=== PATIENT | female | born 1990 | race African-American/Black ===

== ENCOUNTER 2017-01-11 07:00 | Inpatient (IN) ==
[2017-01-11] MEDS: LACTATED RINGERS 1,000 ML IV SCH ×2 (07:30→09:10)
[2017-01-11] MEDS ORDERED: ceFAZolin 2,000 MG in SODIUM CHLORIDE 0.9% 100 ML IV ONE (07:34)
[2017-01-11] MEDS ORDERED: CITRIC ACID/SODIUM CITRATE 30 ML UDCUP PO ONE (07:34)
[2017-01-11] MEDS ORDERED: FAMOTIDINE 20 MG/2 ML VIAL IV ONE (07:34)
[2017-01-11] MEDS ORDERED: OXYTOCIN 10 UNIT/ML VIAL IM ONE (08:05)
[2017-01-11] MEDS ORDERED: OXYTOCIN/LR 30 UNIT/1,000 ML BAG IV ONE (08:05)
[2017-01-11 08:15] LABS: Basophils % 0.1 % (0.0-0.8); Eosinophils # 0.1 10*3/uL (0.0-0.87); Eosinophils % 0.8 % (0.00-10.9); Hematocrit 32.4 VOL% (35.7-47.0); Hemoglobin 11.2 GM/DL (12.0-16.0); Immature Granulocytes % 1.8 %; Immature Granulocytes Absolute 0.14 #; Lymphocytes # 2.4 10*3/uL (1.4-4.0); Lymphocytes % 29.7 % (21.3-54.2); Mean Corpuscular HGB Conc 34.6 GM/DL (32-36); Mean Corpuscular Hemoglobin 32 PG (27-34); Mean Corpuscular Volume 92.8 FL (87-102); Mean Platelet Volume 11.4 FL (9.6-12.0); Monocytes # 0.8 10*3/uL (0.11-0.8); Monocytes % 9.6 % (1.7-12.7); Neutrophils # 4.6 10*3/uL (1.4-7.4); Platelet Count 143 T/CUMM (130-400); Red Blood Count 3.49 MC/CUMM (3.8-5.5); Red Cell Distribution Width 13.4 % (9.3-17.3); White Blood Count 7.9 T/CUMM (4-12)
[2017-01-11 08:53] LABS: Bilirubin,Total 0.4 MG/DL (0.2-1.0); Calcium 8.6 MG/DL (8.5-10.1); Osmolality,Calculated 275.3 MOS/KG (273-304); Potassium 3.4 MMOL/L (3.5-5.1); Total Protein 6.3 G/DL (6.4-8.3)
[2017-01-11] MEDS ORDERED: ONDANSETRON 4 MG/2 ML VIAL ONE (09:30)
[2017-01-11] MEDS ORDERED: PHENYLEPHRINE 1 MG/10 ML SYRINGE IV ONE (09:30)
[2017-01-11 10:24] LABS: Cord Venous Blood HCO3 21.3 MMOL/L; Cord Venous Blood PO2 28.1 MMHG
--- NOTE | 2017-01-11 10:27 | OB/GYN History & Physical ---
History of Present Illness Chief complaint: 39 weeks gestation, repeat section 2 History of present illness: Ms. Schroeder is a 26 year old female 26-year-old female 3 to EDC is 7 7 who presents for repeat section. This patient is a previous section 2 who presents for a repeat section. Risks benefits are discussed she is in full agreement. Fetus is active, heart tones category 1 Home Medications Medication Instructions Recorded Confirmed Type Pnv No.95/Ferrous Fum/Folic AC 1 each PO DAILY 08/27/16 01/11/17 History [ Tablet] NIFEdipine CAP [Procardia] 10 mg PO Q6HR 12/25/16 01/11/17 History Allergies Allergy/AdvReac Type Severity Reaction Status Date / Time No Known Allergies Allergy Verified 01/01/17 16:13 Medical,Surgical,& Family Hx - Medical History Cardio: History of: Hypertension (DURING ) Neurology: History of: Migraine No history of: Seizures Reproductive: History of: Sexually Transmitted Disorders (TRICH,BV) - Surgical History Reproductive Surgeries: Surgical HX of;: Section - Family History Family History: Reports;: Family Cancer (MOTHER), Family Hypertension (MOTHER) - Social History Smoking Status: Never smoker Frequency of Alcohol Use: None Type of Drug Use: None 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 - Constitutional Vitals: Vital Signs Temp Pulse Resp BP Pulse Ox 01/11/17 08:00 97.3 F L 97 H 18 134/84 98 General appearance: normal weight - Head Head exam: Present: normal inspection - Eye Eye exam: Present: EOMI Pupils: Present: GREGORIO - ENT ENT exam: Present: normal exam - Neck Neck exam: Present: normal inspection - Respiratory Respiratory exam: Present: clear to auscultation bilaterally - Breast Breasts: as per HPI Menstruation: as per HPI - Cardiovascular Cardiovascular exam: Present: regular rate and rhythm - GI/Abdominal GI/Abdominal exam: Present: normal bowel sounds - Extremities Exam Extremities exam: Present: normal inspection - Back Exam Back exam: Present: normal inspection - Neurological Exam Neurological exam: Present: alert, oriented X3 - Psychiatric Psychiatric exam: Present: normal affect - Skin Skin exam: Present: normal color Assessment and Plan (1) Status post repeat low transverse section Status: Acute Assessment and plan: Term 39 weeks, plan on repeat section. Current Visit: Yes Results - Labs CBC & BMP: 01/11/17 07:56 01/11/17 07:56
[2017-01-11] MEDS ORDERED: fentaNYL 100 MCG/2 ML VIAL ONE (10:31)
[2017-01-11] MEDS ORDERED: MIDAZOLAM 2 MG/2 ML VIAL ONE (10:31)
[2017-01-11] MEDS ORDERED: MORPHINE 10 MG/10 ML VIAL ONE (10:32)
--- NOTE | 2017-01-11 10:32 | Operative Note ---
Date of procedure: 01/11/17 Procedure: Preoperative diagnosis: Repeat section 2 Postoperative diagnosis: Same Anesthesia:[] Regional Estimated blood loss: [] 300 Surgeon: Dr. Powers Findings: [] Live male, born at 10:00, 7 lbs. 10 oz., Apgars 8 at 1, 9 at 5 Complications: None Procedure: Low transverse section The patient was taken to the operating suite heart tones were obtained prior to and after regional anesthesia was obtained. She was placed in supine position her abdomen was prepped and draped in usual manner for major abdominal surgery. Through an abdominal incision the skin, subcutaneous, fascial layer and peritoneal the abdomen was entered. The bladder flap was created and a low transverse incision was made.. Fluid was clear and normal amount X, Apgars, the placenta was delivered and sent to lab for further evaluation. Injected with intrauterine Pitocin. The first layer of the uterus was closed with #1 Vicryl in a continuous locking manner. Close to imbricate the first layer with #1 Vicryl. The peritoneum was approximated with #2-0 Vicryl.[] All the last sponges and instruments were accounted for -2.) #2-0 Vicryl. Fascia was approximated with #0-0 Maxon.. The skin was approximated with loco. She tolerated procedure well and was taken to recovery room in stable condition. Surgeon / Physician: Collette Powers Results - Labs CBC & BMP: 01/11/17 07:56 01/11/17 07:56 Discharge Plan - Discharge Medications No Action Pnv No.95/Ferrous Fum/Folic AC [ Tablet] 1 each PO DAILY NIFEdipine CAP [Procardia] 10 mg PO Q6HR - Follow Up or Referral - Forms/Instructions
[2017-01-11] MEDS ORDERED: ACETAMINOPHEN 325 MG TABLET PO PRN (10:33)
[2017-01-11] MEDS ORDERED: RHO(D) IMMUNE GLOBULIN 300 MCG SYRINGE IM ONE (10:33)
[2017-01-11] MEDS ORDERED: ONDANSETRON 4 MG/2 ML VIAL IV PRN (10:33)
[2017-01-11] MEDS ORDERED: SIMETHICONE CHEW 80 MG TABLET PO PRN (10:33)
[2017-01-11] MEDS ORDERED: OXYTOCIN/LR 20 UNIT/1,000 ML BAG IV ONE (10:33)
[2017-01-11] MEDS ORDERED: HYDROmorphone 2 MG/1 ML VIAL IV ONE (12:41)
[2017-01-11] MEDS: HYDROmorphone 2 MG/1 ML VIAL IV PRN ×2 (17:14→19:54)
[2017-01-11 19:03] LABS: Basophils % 0.1 % (0.0-0.8); Eosinophils % 0.3 % (0.00-10.9); Hematocrit 28.2 VOL% (35.7-47.0); Hemoglobin 9.7 GM/DL (12.0-16.0); Immature Granulocytes % 1.3 %; Immature Granulocytes Absolute 0.15 #; Lymphocytes # 2.2 10*3/uL (1.4-4.0); Lymphocytes % 19.2 % (21.3-54.2); Mean Corpuscular HGB Conc 34.4 GM/DL (32-36); Mean Corpuscular Hemoglobin 32 PG (27-34); Mean Corpuscular Volume 94.3 FL (87-102); Mean Platelet Volume 11.1 FL (9.6-12.0); Monocytes # 0.8 10*3/uL (0.11-0.8); Monocytes % 7.1 % (1.7-12.7); Neutrophils # 8.4 10*3/uL (1.4-7.4); Platelet Count 130 T/CUMM (130-400); Red Blood Count 2.99 MC/CUMM (3.8-5.5); Red Cell Distribution Width 13.4 % (9.3-17.3); White Blood Count 11.6 T/CUMM (4-12)
--- NOTE | 2017-01-11 19:42 | Anesthesia Post-Op ---
Anesthesia Post OP - Post Ansesthetic Evaluation Patient seen in post op: Yes Resp: within normal limits CV: within normal limits Mental: within normal limits Temp: within normal limits [id number]: within normal limits Nausea and Vomiting: within normal limits Pain: within normal limits
[2017-01-11] MEDS ORDERED: diphenhydrAMINE 50 MG/1 ML VIAL IV PRN (19:46)
[2017-01-11] MEDS: IBUPROFEN 800 MG TABLET PO PRN (19:57)
[2017-01-11 20:00] LABS: Barbiturates Screen,Urine Negative (Negative); Benzodiazepines Screen,Urine Positive (Negative); Cannabinoid Screen,Urine Negative (Negative); Opiate Screen,Urine Positive (Negative); Phencyclidine Screen,Urine Negative (Negative)
[2017-01-12] MEDS: DOCUSATE SODIUM 100 MG CAPSULE PO SCH ×3 (02:19→20:29)
[2017-01-12] MEDS: LACTATED RINGERS 1,000 ML IV SCH ×3 (02:31→19:50)
[2017-01-12] MEDS: IBUPROFEN 800 MG TABLET PO PRN ×3 (03:31→20:29)
[2017-01-12 06:36] LABS: Basophils % 0.2 % (0.0-0.8); Eosinophils % 0.4 % (0.00-10.9); Hematocrit 26.6 VOL% (35.7-47.0); Hemoglobin 9.1 GM/DL (12.0-16.0); Immature Granulocytes % 1.1 %; Immature Granulocytes Absolute 0.11 #; Lymphocytes # 1.5 10*3/uL (1.4-4.0); Lymphocytes % 14.8 % (21.3-54.2); Mean Corpuscular HGB Conc 34.2 GM/DL (32-36); Mean Corpuscular Hemoglobin 33 PG (27-34); Mean Corpuscular Volume 95.7 FL (87-102); Mean Platelet Volume 11.4 FL (9.6-12.0); Monocytes # 1.2 10*3/uL (0.11-0.8); Neutrophils # 7.4 10*3/uL (1.4-7.4); Neutrophils % 71.5 % (38.7-73.9); Platelet Count 134 T/CUMM (130-400); Red Blood Count 2.78 MC/CUMM (3.8-5.5); Red Cell Distribution Width 13.4 % (9.3-17.3); White Blood Count 10.3 T/CUMM (4-12)
[2017-01-12] MEDS: METOCLOPRAMIDE 10 MG/2 ML VIAL IV SCH ×2 (07:28→19:45)
[2017-01-12] MEDS: MULTIVITAMIN (PRENATAL) TABLET PO SCH (09:20)
[2017-01-12] MEDS: MAGNESIUM HYDROXIDE SUSP 30 ML UDCUP PO PRN ×2 (09:20→17:47)
--- NOTE | 2017-01-12 09:58 | OB/GYN Progress Note ---
Assessment and Plan (1) Status post repeat low transverse section Status: Acute Assessment and plan: POD#1 s/p section Doing ok Encourage ambulation Current Visit: Yes GENERAL MAGISTRATE - PN: Subj Interval history: Pt feels sore this morning Exam GENERAL MAGISTRATE - Constitutional Vitals: Vital Signs Temp Pulse Resp BP Pulse Ox 01/12/17 08:00 97.9 F 96 H 20 126/77 01/12/17 03:32 97.7 F 91 H 18 121/67 99 01/12/17 00:00 98 F 88 18 113/55 99 01/11/17 20:00 98 F 90 18 115/70 99 01/11/17 15:59 98.4 F 83 20 124/71 98 01/11/17 15:05 98.0 F 83 20 129/75 98 General appearance: no acute distress - Head Head exam: Present: normal inspection - Eye Eye exam: Present: EOMI Pupils: Present: GREGORIO - GI/Abdominal GI/Abdominal exam: Present: other (Incision intact) Results - Labs CBC & BMP: 01/12/17 06:10 01/11/17 07:56
--- NOTE | 2017-01-12 13:34 | Discharge Summary ---
Hospital Course - Hospital Course Hospital Course: Postoperative day #2 Status post section Patient is doing well ambulating, voiding well, passing gas, however patient has not had a bowel movement at this time. Denies any other major problems. No shortness of breath chest pain or palpitations. Her incision site is well intact Extremities well within normal limits neurologic grossly intact assessment plan we will discharge and follow my office in 2 weeks Diagnosis - Discharge Diagnosis (1) Status post repeat low transverse section Status: Acute Discharge Plan - Discharge Data Condition at Discharge: Stable Discharge Diet: advance to your usual diet Activity: resume usual activities as tolerated, increase activity as tolerated Hygiene: may shower Weight Bearing at Discharge: weight bear as tolerated Driving: not until seen by doctor Contact your physician if you experience:: fever over 101, Shortness of breath, Bleeding - Discharge Medications New Ibuprofen Tab [Motrin Tab] 800 mg PO Q8H PRN #60 tablet PRN Reason: Pain Severe (8-10) HYDROcodone/ACETAMIN 5-325 [[place] 5-325] 2 tablet PO Q6H PRN #45 tablet PRN Reason: Pain Severe (8-10) No Action Pnv No.95/Ferrous Fum/Folic AC [ Tablet] 1 each PO DAILY NIFEdipine CAP [Procardia] 10 mg PO Q6HR - Follow Up or Referral - Forms/Instructions Exam - Constitutional Vitals: Period Temp Pulse Resp BP Sys/Vega Pulse Ox Last 24 Hr 97.7 F-98.4 F 83-96 18-20 113-129/55-77 97-99 Discharge Results Labs on day of discharge: Labs from last 24 hours 01/12/17 01/11/17 01/11/17 06:10 18:47 10:35 WBC 10.3 11.6 D RBC 2.78 L 2.99 L Hgb 9.1 L 9.7 L Hct 26.6 L 28.2 L MCV 95.7 94.3 MCH 33 32 MCHC 34.2 34.4 RDW 13.4 13.4 Plt Count 134 130 MPV 11.4 11.1 Neut % (Auto) 71.5 72.0 Lymph % (Auto) 14.8 L 19.2 L [place] % (Auto) 12.0 7.1 Eos % (Auto) 0.4 0.3 Baso % (Auto) 0.2 0.1 Neut # (Auto) 7.4 8.4 H Lymph # (Auto) 1.5 2.2 [place] # (Auto) 1.2 H 0.8 Eos # (Auto) 0.0 0.0 Baso # (Auto) 0.0 0.0 Immature Gran % 1.1 1.3 Nucleated RBC % 0.0 0.0 Immature Gran # 0.11 0.15 Nucleated RBCs # 0.00 0.00 Urine Opiates Screen Positive H Ur Barbiturates Screen Negative Ur Phencyclidine Scrn Negative U Amphetamine/Methamph Negative U Benzodiazepines Scrn Positive H U Cocaine Metab Screen Negative U Cannabinoids Screen Negative DS: Provider Date of admission: 01/11/17 07:00 Primary care physician: Collette Powers MD Attending physician on admission: Collette Powers MD Consults: 01/11/17 10:33 Consult to Substitute Teacher [CONS] Routine Consult Substitute Teacher: Breast Feeding 01/12/17 07:55 Consult to Case Mgmt/Social Srvs [CONS] Routine Reason for Case Mgmt/Social Srvs: Other Discharging clinician: Collette Powers MD
[2017-01-12] MEDS ORDERED: MAGNESIUM CITRATE 300 ML BOTTLE PO ONE (14:30)
[2017-01-12] MEDS ORDERED: METOCLOPRAMIDE 10 MG TABLET PO SCH (14:30)
[2017-01-12] MEDS ORDERED: BISACODYL 10 MG SUPP RECTAL ONE (17:44)
[2017-01-12] MEDS ORDERED: BISACODYL 10 MG SUPP RECTAL PRN (17:44)
[2017-01-13] MEDS: LACTATED RINGERS 1,000 ML IV SCH (03:23)
[2017-01-13] MEDS: IBUPROFEN 800 MG TABLET PO PRN (04:10)
[2017-01-13 07:32] VITALS: BP 127/75
[2017-01-13] MEDS ORDERED: IBUPROFEN 800 MG TABLET PO PRN (07:59)
[2017-01-13] MEDS: MULTIVITAMIN (PRENATAL) TABLET PO SCH (08:25)
[2017-01-13] MEDS: DOCUSATE SODIUM 100 MG CAPSULE PO SCH (08:25)
== END 2017-01-13 11:55 | disposition home or self-care (01) | DRG 540 ==
LOC: N.LD 07:00 → N.OB 15:31
PROVIDERS: ADMIT Obstetrics & Gynecology; ATTEND Obstetrics & Gynecology
PROC: LDCSECT (ICD-10-PCS; 2017-01-11 09:30)

== ENCOUNTER 2019-08-24 06:40 | Inpatient (IN) ==
[2019-08-24] MEDS ORDERED: ONDANSETRON 4 MG/2 ML VIAL IV PRN ×2 (07:58→10:11)
[2019-08-24] MEDS ORDERED: MEPERIDINE 50 MG/1 ML VIAL IV PRN (07:58)
[2019-08-24] MEDS ORDERED: BUTORPHANOL 2 MG/ML VIAL IV PRN (07:58)
[2019-08-24] MEDS ORDERED: FAMOTIDINE 20 MG/2 ML VIAL IV SCH (08:00)
[2019-08-24] MEDS ORDERED: LACTATED RINGERS 1,000 ML IV SCH ×2 (08:00→10:30)
[2019-08-24] MEDS ORDERED: CITRIC ACID/SODIUM CITRATE 30 ML UDCUP PO ONE (08:02)
[2019-08-24] MEDS ORDERED: ceFAZolin 2,000 MG in PREMIX 1 EACH IV ONE (08:07)
[2019-08-24 08:15] LABS: Basophils % 0.2 % (0.0-0.8); Eosinophils # 0.1 10*3/uL (0.0-0.87); Eosinophils % 1.1 % (0.00-10.9); Hematocrit 32.8 VOL% (35.7-47.0); Immature Granulocytes % 0.9 %; Immature Granulocytes Absolute 0.06 #; Lymphocytes # 2.3 10*3/uL (1.4-4.0); Lymphocytes % 36.9 % (21.3-54.2); Mean Corpuscular HGB Conc 33.5 GM/DL (32-36); Mean Corpuscular Volume 92.7 FL (87-102); Monocytes % 9.6 % (1.7-12.7); Neutrophils % 51.3 % (38.7-73.9); Platelet Count 165 T/CUMM (130-400); Red Blood Count 3.54 MC/CUMM (3.8-5.5); Red Cell Distribution Width 12.7 % (9.3-17.3); White Blood Count 6.3 T/CUMM (4-12)
[2019-08-24] MEDS ORDERED: ROPIVACAINE 0.5% 30 ML VIAL ONE (08:34)
[2019-08-24] MEDS ORDERED: PHENYLEPHRINE 1 MG/10 ML SYRINGE IV ONE (08:34)
[2019-08-24] MEDS ORDERED: KETOROLAC 60 MG/2 ML VIAL IM ONE (08:35)
[2019-08-24] MEDS ORDERED: BUPIVACAINE SPINAL 0.75% 2 ML AMP SPINAL ONE (08:35)
[2019-08-24] MEDS ORDERED: MORPHINE 10 MG/10 ML VIAL ONE (08:35)
[2019-08-24] MEDS ORDERED: fentaNYL 100 MCG/2 ML VIAL ONE (08:35)
[2019-08-24] MEDS ORDERED: DEXAMETHASONE 4 MG/1 ML VIAL ONE (08:35)
[2019-08-24] MEDS ORDERED: OXYTOCIN/LR 30 UNIT/1,000 ML BAG IV ONE (08:37)
[2019-08-24] MEDS ORDERED: OXYTOCIN 10 UNIT/ML VIAL IM ONE (08:37)
[2019-08-24 10:03] LABS: Cord Venous Blood HCO3 21.8 MMOL/L; Cord Venous Blood PCO2 42.4 MMHG; Cord Venous Blood PO2 31.8
[2019-08-24 10:11] LABS: Apearance,Urine CLEAR (Clear); Bilirubin,Urine Negative (Negative); Blood, Urine Small mg/dL (Negative); Glucose,Urine (UA) Negative (Negative); Ketones,Urine Negative (Negative); Nitrite,Urine Negative (Negative); Protein,Urine Negative; RBC,Urine 1 /HPF (0-4); Squamous Epithelial Cell,Urine Occasional /HPF (0-10); Urine Color Straw (Yellow); Urine Specific Gravity 1.012 (1.001-1.035); Urine Urobilinogen < 2.0 EU/DL (0.2-1.0); WBC,Urine <1 /HPF (0-6)
[2019-08-24] MEDS ORDERED: ACETAMINOPHEN 325 MG TABLET PO PRN (10:11)
[2019-08-24] MEDS ORDERED: RHO(D) IMMUNE GLOBULIN 300 MCG SYRINGE IM ONE (10:11)
[2019-08-24] MEDS ORDERED: OXYTOCIN/LR 20 UNIT/1,000 ML BAG IV ONE (10:11)
[2019-08-24] MEDS ORDERED: HYDROmorphone 2 MG/1 ML VIAL IV PRN ×2 (12:32→13:51)
[2019-08-24] MEDS ORDERED: hydrOXYzine HCL 25 MG/1 ML VIAL IM PRN (13:51)
[2019-08-24] MEDS ORDERED: diphenhydrAMINE 50 MG/1 ML VIAL IV PRN (13:51)
[2019-08-24] MEDS: KETOROLAC 30 MG/1 ML VIAL IV SCH ×2 (15:44→22:05)
[2019-08-24] MEDS: ceFAZolin 1,000 MG in SYRINGE 1 EACH IV SCH (17:30)
[2019-08-24 18:13] LABS: Hematocrit 30.2 VOL% (35.7-47.0); Hemoglobin 10.2 GM/DL (12.0-16.0)
[2019-08-24] MEDS: DOCUSATE SODIUM 100 MG CAPSULE PO SCH (22:05)
[2019-08-25] MEDS: ceFAZolin 1,000 MG in SYRINGE 1 EACH IV SCH (01:39)
[2019-08-25] MEDS: KETOROLAC 30 MG/1 ML VIAL IV SCH (04:07)
[2019-08-25 05:24] LABS: Basophils % 0.2 % (0.0-0.8); Eosinophils % 0.3 % (0.00-10.9); Hematocrit 24.3 VOL% (35.7-47.0); Hemoglobin 8.2 GM/DL (12.0-16.0); Immature Granulocytes % 0.7 %; Immature Granulocytes Absolute 0.08 #; Lymphocytes # 2.7 10*3/uL (1.4-4.0); Lymphocytes % 22.2 % (21.3-54.2); Mean Corpuscular HGB Conc 33.7 GM/DL (32-36); Mean Corpuscular Volume 93.8 FL (87-102); Mean Platelet Volume 11.1 FL (9.6-12.0); Neutrophils % 66.6 % (38.7-73.9); Platelet Count 129 T/CUMM (130-400); Red Blood Count 2.59 MC/CUMM (3.8-5.5); Red Cell Distribution Width 12.9 % (9.3-17.3); White Blood Count 12.1 T/CUMM (4-12)
[2019-08-25] MEDS: MAGNESIUM HYDROXIDE SUSP 30 ML UDCUP PO PRN (08:30)
[2019-08-25] MEDS: FERROUS SULFATE 325 MG TABLET PO SCH ×2 (08:30→20:01)
[2019-08-25] MEDS: METOCLOPRAMIDE 10 MG TABLET PO SCH ×2 (08:30→17:02)
[2019-08-25] MEDS: MULTIVITAMIN (PRENATAL) TABLET PO SCH (08:30)
[2019-08-25] MEDS: DOCUSATE SODIUM 100 MG CAPSULE PO SCH ×2 (08:30→20:01)
[2019-08-25] MEDS: SIMETHICONE CHEW 80 MG TABLET PO PRN (08:30)
[2019-08-25] MEDS: IBUPROFEN 800 MG TABLET PO PRN ×2 (08:38→19:56)
[2019-08-25] MEDS ORDERED: INFLUENZA VIRUS VACCINE 0.5 ML SYRINGE IM ONE (09:00)
[2019-08-26] MEDS: METOCLOPRAMIDE 10 MG TABLET PO SCH ×2 (02:22→09:00)
[2019-08-26] MEDS ORDERED: BISACODYL 10 MG SUPP RECTAL PRN (07:58)
[2019-08-26 08:43] VITALS: BP 113/65
[2019-08-26] MEDS: DOCUSATE SODIUM 100 MG CAPSULE PO SCH (09:00)
[2019-08-26] MEDS: MAGNESIUM HYDROXIDE SUSP 30 ML UDCUP PO PRN (09:00)
[2019-08-26] MEDS: SIMETHICONE CHEW 80 MG TABLET PO PRN (09:00)
[2019-08-26] MEDS: FERROUS SULFATE 325 MG TABLET PO SCH (09:00)
[2019-08-26] MEDS: MULTIVITAMIN (PRENATAL) TABLET PO SCH (09:00)
[2019-08-26] MEDS: IBUPROFEN 800 MG TABLET PO PRN (09:01)
[2019-08-26] MEDS ORDERED: DIPH/TET/ACEL PERT BOOSTER VACCINE 0.5 ML VIAL IM ONE (10:22)
[2019-08-26] MEDS ORDERED: INFLUENZA VIRUS VACCINE 0.5 ML SYRINGE IM ONE (10:22)
== END 2019-08-26 13:10 | disposition home or self-care (01) | DRG 540 ==
LOC: N.LD 06:40 → N.OB 13:55
PROVIDERS: ADMIT Obstetrics & Gynecology; ATTEND Obstetrics & Gynecology
PROC: LDCSECT (ICD-10-PCS; 2019-08-24 10:15)